=== PATIENT | male | born 1975 | race Caucasian/White ===

== ENCOUNTER 2023-05-31 14:26 | Inpatient (IN) | payer OTHER ==
[~2023-05-31] VITALS: Ht 177.8 cm; Wt 114.8 kg
[2023-05-31 14:45] VITALS: BP_SYST 136; PULSE 63; RESP 24; TEMP 97.1; O2SAT 99
[2023-05-31] MEDS ORDERED: KETOROLAC TROMETHAMINE 30 MG VIAL IVP ONE (15:00)
[2023-05-31] MEDS ORDERED: NACL 0.9% 1,000 ML IV ONE ×2 (15:00→18:30)
[2023-05-31] MEDS ORDERED: ONDANSETRON HCL 4 MG/2 ML VIAL IVP ONE (15:00)
[2023-05-31 15:31] LABS: HEMATOCRIT 48.2 % (36-54); HEMOGLOBIN 16.6 g/dL (14.0-18.0); MEAN CORPUSCULAR HEMOGLOBIN 33 pg (27-31); MEAN CORPUSCULAR HGB CONC 35 % (32-36); MEAN CORPUSCULAR VOLUME 94 fL (79.0-98.0); PLATELET COUNT (AUTO) 266 K/uL (130-430); RED BLOOD CELL COUNT(AUTO) 5.12 MIL/uL (4.2-6.2); RED CELL DISTRIBUTION WIDTH 12.8 % (9.0-15.0)
[2023-05-31 15:35] LABS: WHITE BLOOD COUNT (AUTO) 23.2 K/uL (4.8-10.8)
[2023-05-31 15:39] LABS: CALCIUM 9.8 mg/dL (8.4-11.0); CREATININE 1.16 mg/dL (0.55-1.30)
[2023-05-31 15:43] LABS: ALBUMIN 4.4 g/dL (3.4-4.8); BILIRUBIN,DIRECT 0.1 mg/dL (0.0-0.3); TOTAL BILIRUBIN 0.6 mg/dL (0.0-1.0); TOTAL PROTEIN, SERUM 7.9 g/dL (6.4-8.3)
[2023-05-31 16:00] LABS: BAND % (MANUAL) 2 % (0-6)
[2023-05-31 16:01] LABS: BASOPHILS % (MANUAL) 0 % (0-2); EOSINOPHILS % (MANUAL) 0 % (0-7); LYMPHOCYTES % (MANUAL) 5 % (20-46); MONOCYTES % (MANUAL) 5 % (0-11); PLATELET ESTIMATE ADEQUATE (ADEQUATE)
[2023-05-31 17:48] LABS: BLOOD, URINE 3+ (NEGATIVE); CLARITY/URINE SL CLOUDY (CLEAR); COLOR,URINE BROWN (YELLOW); GLUCOSE,URINE NEGATIVE (NEGATIVE); KETONES,URINE TRACE (NEGATIVE); LEUKOCYTE ESTERASE ,URINE NEGATIVE (NEGATIVE); NITRITE, URINE NEGATIVE (NEGATIVE); PH,URINE 5.5 (5.0-8.0); PROTEIN URINE 2+ (NEGATIVE); UROBILINOGEN,URINE 0.2 (0.2-1.0)
[2023-05-31 18:04] LABS: BILIRUBIN,URINE 1+ (NEGATIVE)
[2023-05-31 18:05] LABS: BACTERIA,URINE FEW /HPF (None Seen); CALCIUM OXALATE CRYSTALS,UR 0-10 /HPF (None Seen); MUCUS,URINE None Seen /LPF (None Seen); RBC,URINE >100 /HPF (0-3); WBC,URINE 0-3 /HPF (0-3)
[2023-05-31] MEDS ORDERED: cefTRIAXone 1 GM IVPB PREMIX 50 ML IV ONE (18:15)
[2023-05-31] MEDS ORDERED: TAMSULOSIN HCL 0.4 MG CAP PO ONE (18:30)
[2023-05-31] MEDS ORDERED: KETOROLAC TROMETHAMINE 30 MG VIAL IVP PRN (18:45)
[2023-05-31] MEDS ORDERED: ACETAMINOPHEN 325 MG TABLET PO PRN ×2 (18:45→22:00)
[2023-05-31] MEDS ORDERED: IBUPROFEN 600 MG TABLET PO ONE (20:00)
[2023-05-31] MEDS ORDERED: ONDANSETRON HCL 4 MG/2 ML VIAL IVP PRN (22:00)
[2023-05-31] MEDS ORDERED: D5/0.45 NS 1,000 ML IV SCH (22:00)
[2023-05-31] MEDS ORDERED: IBUPROFEN 600 MG TABLET PO PRN (22:00)
[2023-05-31] MEDS ORDERED: LORazepam 2 MG/ML VIAL IVP PRN (22:00)
[2023-06-01] VITALS: BP_SYST 132; PULSE 74; RESP 18; TEMP 98; O2SAT 99
[2023-06-01 04:00] VITALS: BP_SYST 129; PULSE 70; RESP 18; TEMP 98.3; O2SAT 100
[2023-06-01 04:43] LABS: BASOPHILS % (AUTO) 0.4 % (0.0-2.0); EOSINOPHILS # (AUTO) 0.1 K/uL (0.0-0.4); EOSINOPHILS % (AUTO) 0.6 % (0.0-4.0); HEMATOCRIT 42.4 % (36-54); HEMOGLOBIN 14.6 g/dL (14.0-18.0); LYMPHOCYTES # (AUTO) 2.1 K/uL (1.0-5.5); LYMPHOCYTES % (AUTO) 19.4 % (20.5-51.5); MEAN CORPUSCULAR HEMOGLOBIN 32 pg (27-31); MEAN CORPUSCULAR HGB CONC 34 % (32-36); MEAN CORPUSCULAR VOLUME 94 fL (79.0-98.0); MONOCYTES # (AUTO) 0.8 K/uL (0.0-1.0); MONOCYTES % (AUTO) 7.1 % (1.7-9.3); NEUTROPHILS # (AUTO) 7.7 K/uL (1.8-7.7); NEUTROPHILS % (AUTO) 72.5 % (40.0-70.0); PLATELET COUNT (AUTO) 220 K/uL (130-430); RED BLOOD CELL COUNT(AUTO) 4.49 MIL/uL (4.2-6.2); RED CELL DISTRIBUTION WIDTH 12.6 % (9.0-15.0); WHITE BLOOD COUNT (AUTO) 10.6 K/uL (4.8-10.8)
[2023-06-01 05:15] LABS: CALCIUM 8.7 mg/dL (8.4-11.0); CREATININE 0.87 mg/dL (0.55-1.30); PHOSPHORUS 3.8 mg/dL (2.7-4.5); POTASSIUM 4.3 mmol/L (3.5-5.1)
[2023-06-01 09:43] VITALS: BP_SYST 125; PULSE 58; RESP 18; TEMP 97
[2023-06-01 11:00] VITALS: BP_SYST 115; PULSE 54; RESP 15; TEMP 96.9; O2SAT 99
[2023-06-01] MEDS ORDERED: cefTRIAXone 1 GM IVPB PREMIX 50 ML IV SCH (18:00)
== END 2023-06-01 13:30 | disposition left against medical advice (07) | DRG 690 ==
LOC: SED 14:26 → SMU 18:34
PROVIDERS: ADMIT Preventive Medicine Preventive Medicine/Occupational Environmental Medicine; ATTEND Preventive Medicine Preventive Medicine/Occupational Environmental Medicine
DX: N13.6 Pyonephrosis (principal); E87.20 Acidosis, unspecified; D72.829 Elevated white blood cell count, unspecified; R73.9 Hyperglycemia, unspecified; R31.9 Hematuria, unspecified; N36.8 Other specified disorders of urethra; Z88.0 Allergy status to penicillin
CPT/HCPCS: 36415; 76376; 80048; 80076; 81000; 81001; 81015; 83605; 83690; 83735; 84100; 85007; 85025; 85027; 87040; 96361; 96374; 96375; 99285; J0696; J1885; J2405